=== PATIENT | male | born 1995 | race Caucasian/White ===

== ENCOUNTER 2024-10-31 05:38 | Emergency (ER) | payer OTHER, SELFPAY ==
--- NOTE | 2024-10-31 | ECG_ITS ---
Test Reason : DIZZINESS Blood Pressure : */* mmHG Vent. Rate : 75 BPM Atrial Rate : 75 BPM P-R Int : 146 ms QRS Dur : 100 ms QT Int : 388 ms P-R-T Axes : 55 1 17 degrees QTcB Int : 433 ms Normal sinus rhythm with sinus arrhythmia Nonspecific T wave abnormality Abnormal ECG No previous ECGs available Referred By: Generic ED Physician Electronically Signed By: Mike Ross
[2024-10-31 05:40] VITALS: BP 147/76; PULSE 90; RESP 18; TEMP 36.8; O2SAT 97; BMI 31.2
[2024-10-31 06:38] LABS: MANUAL DIFF FLAG NO
[2024-10-31 06:39] LABS: Basophils Percent Auto 0.4 % (0-2); Eosinophils Absolute Auto 0.1 X10*3/uL (0.0-0.4); Eosinophils Percent Auto 1.1 % (0-4); Hematocrit 44.4 % (42.0-52.0); Hemoglobin 15.8 g/dl (14.0-18.0); Imm Gran Abs Auto 0.01 X10*3/uL (0.00-0.03); Imm Gran Pct Auto 0.2 % (0.0-0.4); Lymphocytes Absolute Auto 1.2 X10*3/uL (1.2-4.9); Lymphocytes Percent Auto 27.2 % (20-40); Mean Corpuscular HGB Conc 35.6 g/dl (31.0-36.0); Mean Corpuscular Hemoglobin 31.6 pg (27.0-33.0); Mean Corpuscular Volume 88.8 fL (80.0-98.0); Mean Platelet Volume 9.5 fL (9.4-12.4); Monocytes Absolute Auto 0.2 X10*3/uL (0.1-1.2); Monocytes Percent Auto 5.4 % (2-11); Neutrophils Absolute Auto 2.9 x10*3/uL (2.0-8.3); Neutrophils Percent Auto 65.7 % (45-73); Platelet Count 220 X10*3/uL (160-400); White Blood Count 4.5 X10*3/uL (4.8-10.8)
[2024-10-31 06:43] VITALS: BP 116/66; PULSE 66; RESP 16; TEMP 37.3; O2SAT 95
[2024-10-31 06:53] LABS: Alanine Aminotransferase 32 U/L (0-40); Albumin Level 5.2 g/dL (3.5-5.0); Alkaline Phosphatase 52 U/L (39-117); Anion Gap 13 (12-20); Aspartate Amino Transferase 23 U/L (5-37); Bilirubin Total 0.6 mg/dL (0.0-1.0); Blood Urea Nitrogen 12 mg/dL (9-16); Carbon Dioxide 28 mmol/L (22-29); Chloride 108 mmol/L (96-108); Creatinine Clr Calc Pharmacy 120.3; Estimated Glomerular Filt Rate > 60; Glucose Random 81 mg/dL (60-115); Potassium 4.1 mmol/L (3.3-5.1); Sodium 145 mmol/L (135-145); Total Protein 7.6 g/dL (6.5-8.0)
--- NOTE | 2024-10-31 07:30 | ED_ITS ---
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 He does have history of anxiety, nondrinker nonsmoker otherwise healthy. No palpitations no chest pain no fevers or chills no abdominal pain, and he describes this as a spinning sensation. MD elicited complaint: dizziness Related Data Previous Rx's ?Medication ?Instructions ?Recorded meclizine 12.5 mg tablet 12.5 mg PO TID PRN vertigo 5 days 10/31/24 #20 tabs scopolamine base 1 mg over 3 days 1 patch transdermal Q3D PRN 10/31/24 transdermal patch dizziness #4 ea Allergies Allergy/AdvReac Type Severity Reaction Status Date / Time No Known Allergies Allergy Verified 10/31/24 05:47 Review of Systems 2 Constitutional: Constitutional: Reports as per [facility] Social History Social History Smoked in Last 30 Days: No Use of substances other than those prescribed or required for medical reasons: No Advance Directives: No Physical Exam 2 Vital Signs: Vital Signs: Last Vital Signs Temp 99.1 F 10/31/24 06:43 Pulse 66 10/31/24 06:43 Resp 16 10/31/24 06:43 BP 116/66 10/31/24 06:43 Pulse Ox 95 10/31/24 06:43 O2 Del Method Room Air 10/31/24 06:43 BMI result Body Mass Index 31.2 Const: Other: * Gen: ?Overall well-appearing patient * HEENT: PERRLA, EOMI, MMM, irritated external canals, no wax impaction, normal TMs * Neck: Supple, no LAD * CV: RRR, no obvious murmurs appreciated * Resp: ?No wheezing rales rhonchi no stridor moving air well * Abd: ?Bowel sounds are present, no tenderness no rebound no rigidity * MSK: FROM, strength 5/5 all extremities * Skin: Warm, dry, intact, * Neuro: ?Alert and oriented x3, moving upper and lower extremities symmetrically, no obvious facial asymmetry noted, no dysmetria upper or lower extremities, he has left-sided horizontal nystagmus nonsustained without rotary or vertical component Medical Decision Making Medical Decision Making [facility] Narrative: Patient presenting with few episodes of vertigo, blood work did not reveal any anemia, EKG without underlying dysrhythmia or anything else to suspect underlying ACS, physical examination is not consistent for cerebellar stroke and he does not have risk factors for that, he does have BPPV to the left side based on physical examination, see my discharge instructions Differential Diagnosis Differential Diagnoses: The differential diagnosis associated with the presentation includes ACS, dysrhythmia, cerebellar stroke, BPPV, anemia, dehydration, electrolyte derangements Admission/Observation Consideration of admission/observation: Escalation of care including admission/observation considered Lab Data [facility] Lab Attestation statement: I reviewed the patient's lab results. 10/31/24 06:33 10/31/24 06:33 Labs: Lab Results 10/31/24 Range/Units 06:33 WBC 4.5 L (4.8-10.8) X10*3/uL RBC 5.00 (4.60-5.80) X10*6/uL Hgb 15.8 (14.0-18.0) g/dl Hct 44.4 (42.0-52.0) % MCV 88.8 (80.0-98.0) fL MCH 31.6 (27.0-33.0) pg MCHC 35.6 (31.0-36.0) g/dl RDW 12.0 (11.0-16.0) % Plt Count 220 (160-400) X10*3/uL MPV 9.5 (9.4-12.4) fL Immature Gran % (Auto) 0.2 (0.0-0.4) % Neut % (Auto) 65.7 (45-73) % Lymph % (Auto) 27.2 (20-40) % [facility] % (Auto) 5.4 (2-11) % Eos % (Auto) 1.1 (0-4) % Baso % (Auto) 0.4 (0-2) % Lymph # (Auto) 1.2 (1.2-4.9) X10*3/uL [facility] # (Auto) 0.2 (0.1-1.2) X10*3/uL Eos # (Auto) 0.1 (0.0-0.4) X10*3/uL Baso # (Auto) 0.0 (0.0-0.2) X10*3/uL Abs Immat Gran (auto) 0.01 (0.00-0.03) X10*3/uL Absolute Neuts (auto) 2.9 (2.0-8.3) x10*3/uL Absolute Nucleated RBC 0.000 (0.0-0.012) X10*3/uL Nucleated RBC % (auto) 0.0 (0.0-0.2) /100WBC Sodium 145 (135-145) mmol/L Potassium 4.1 (3.3-5.1) mmol/L Chloride 108 (96-108) mmol/L Carbon Dioxide 28 (22-29) mmol/L Anion Gap 13 (12-20) BUN 12 (9-16) mg/dL Creatinine 0.98 (0.5-1.4) mg/dL Estim Creat Clear Calc 120.3 Estimated GFR > 60 Random Glucose 81 (60-115) mg/dL Calcium 10.0 (8.4-10.2) mg/dL Total Bilirubin 0.6 (0.0-1.0) mg/dL AST 23 (5-37) U/L ALT 32 (0-40) U/L Alkaline Phosphatase 52 (39-117) U/L Total Protein 7.6 (6.5-8.0) g/dL Albumin 5.2 H (3.5-5.0) g/dL Independent Interpretation I performed an independent interpretation of an: EKG (75 beats per minute otherwise normal ECG without dysrhythmia, AV sandie blocks or ST-T changes to suspect underlying ACS, my independent interpretation) Discharge Plan Discharge Clinical Impression: Benign paroxysmal positional vertigo Qualifiers: Laterality: left Qualified Code(s): H81.12 - Benign paroxysmal vertigo, left ear Patient Disposition: Home, Self-Care Instructions: Vertigo (ED) Additional Instructions: As discussed physical examination is consistent with vertigo to the left, with findings of irritated ear canals, stopped using ear pods and do not use Q-tips to clean her ears as well at least for the time being, you scopolamine patch keep it in place for the next 3 days meclizine for additional symptom control, stay well hydrated, this typically resolves in under a week, worsening issues concerns come back to the ER, when you are feeling better and not having to use medications both of these which can sedate you can return to work I will give her a work note. Follow up with the PCP Prescriptions: New meclizine 12.5 mg tablet 12.5 mg PO TID PRN (Reason: vertigo) 5 Days Qty: 20 0RF scopolamine base 1 mg over 3 days patch 3 day 1 patch transdermal Q3D PRN (Reason: dizziness) Qty: 4 0RF Stand Alone Forms: Work/School Release Print Language: Khmer
[2024-10-31] MEDS: Scopolamine 1.5 MG PATCH.TD.3 EAR-BEHIND (07:45)
[2024-10-31] MEDS: Meclizine HCl 12.5 MG TABLET PO (07:45)
[2024-10-31 07:51] VITALS: BP 116/66; PULSE 66; RESP 16; TEMP 37.3; O2SAT 95
== END 2024-10-31 08:02 | disposition home or self-care (01) ==
PROVIDERS: Emergency Provider Emergency Medicine
DX: H81.12 Benign paroxysmal vertigo, left ear (principal); I49.8 Other specified cardiac arrhythmias; Z79.899 Other long term (current) drug therapy
CPT/HCPCS: 36415; 80053; 85025; 93005; 99283; 99284

== ENCOUNTER → 2024-10-31 06:18 | Outpatient (BNV) | payer OTHER, SELFPAY | PROVIDERS: Emergency Provider Emergency Medicine; Visit Provider Internal Medicine Cardiovascular Disease | DX: I49.9 Cardiac arrhythmia, unspecified (principal) | CPT/HCPCS: 93010 ==